=== PATIENT | female | born 1970 | race Caucasian/White ===

== ENCOUNTER 2016-09-14 07:05 | Inpatient (IN) | payer BC, OTHER ==
[~2016-09-14] VITALS: Ht 170.2 cm; Wt 94.3 kg
[2016-09-14] MEDS ORDERED: LOPERAMIDE HCL 2 MG CAPSULE PO PRN ×2 (13:30)
[2016-09-14] MEDS ORDERED: LORAZEPAM 1 MG TABLET PO PRN ×2 (13:30)
[2016-09-14] MEDS ORDERED: MIRALAX 17 GM POWD.PACK PO PRN (13:30)
[2016-09-14] MEDS ORDERED: IBUPROFEN 600 MG TABLET PO PRN (13:30)
[2016-09-14] MEDS ORDERED: MAG HYDROX/AL HYDROX/SIMETH 30 ML LIQUID UDC PO PRN (13:30)
[2016-09-14] MEDS ORDERED: LORAZEPAM 2 MG/1 ML VIAL IM PRN (13:30)
[2016-09-14] MEDS ORDERED: DICYCLOMINE HCL 20 MG TABLET PO PRN (13:30)
[2016-09-14] MEDS ORDERED: ONDANSETRON 4 MG/2 ML VIAL IM PRN (13:30)
[2016-09-14] MEDS ORDERED: MAGNESIUM HYDROXIDE 30 ML LIQUID UDC PO PRN (13:30)
[2016-09-14] MEDS ORDERED: diphenhydrAMINE 50 MG CAPSULE PO PRN (13:30)
--- NOTE | 2016-09-14 13:40 | NUR ---
PRE-ADMISSION NOTE Patient assessed in intake office at 1330 on 09/14/2016. Patient is ambulatory with steady gate, stable, alert oriented x4, speech is soft and clear. Patient states that she is here for safety withdrawal from Xanax and Opioid Dependence. Patient states that her last use "Xanax PO on 09/13/16 at 2100 2mg and Percocet 45mg 09/14/16 at 5"30Am. CIWA 4/COWS-3: Patient presents with anxiety, agitation, nervousness, Patient denies N/V, and diarrhea. Patient denies SI/HI. Patient denies history of seizures. Will complete admission assessment when patient is brought up to unit.
[2016-09-14] MEDS ORDERED: BUPRENORPHINE HCL 2 MG TAB.SUBL SL PRN (13:45)
--- NOTE | 2016-09-14 13:50 | NUR ---
ADMISSION NOTE Pt is a 46 year old female, admitted on 09/14/16 at 1330 for Opioid and Benzo Dependence. Pt admitted under care of Dr. Torres. Pt's skin and body check completed, no contraband found. Pt awake, alert, oriented x 4, gait steady, pt is ambulatory without assistance. Pt weights 280 pounds and her height is 58. Denies any history of seizures. Pt escorted to room 306 where the rest of assessment was completed. Pt is primary source of information, information consistent, speech coherent. Pt brought home medications which have been reconciled. Pt states her PCP Dr. Bingham. Pt denies having a psychiatrist or a psychologist. Pt requested to be full code, regular diet on fall and seizure precautions, Pt denies any food allergies but states he is allergic to Bactrim/Iodine/Ibuprofen, and Margarine Meds. Her last BM was on 09/14/16. Pt states that she with her daughter and grand children. Pt denies smoking cigarettes. Pt denies being admitted to a hospital in the past 30 days, Pt is not a candidate for MRSA. Pt's initial vital signs are BP: 134/96, Temp: 98.2, Pulse: 62 SPO2: 96% RR:18 and states that she has 0/10 pain. Pt's initial CIWA was a 4, COWS-3. Pt reports PMH of Anxiety, Gastric bypass in 2014, A-FIB, Pneumonia in 2013. Pt's longest sobriety lasted 6.5 years which was from 2005 to October 2011. Pt stated that she does not attend AA meetings. Pt reported family history of abuse her daughter and sister are a heroin addicted. Pt denies any suicidal or homicidal ideations. Substance use History : 1.Percocet-used first time at age 17, currently using 10 to 15 tablets of 10mg Po daily last use on 09/14/16 45mg at 5:30 am 2.Xanax- used first time at age 41, Currently using 4mg Po daily last use on 09/13/16 at 2100 Rehab history: Pt denies any rehab history, it her first time in treatment. Pt cooperative, appears depressed, reports moderate anxiety. Educated on relaxation techniques (deep breathing) pt verbalized understanding. Pt denies SI/HI at this time, denies hallucinations. Skin warm and moist from sweat, color pink, consistent throughout the body. Eyes PERRLA, tremors not noted but felt. Pt denied tingling. All extremities with full ROM. Lung sounds clear bilaterally, no cough present, pt denies SOB. Heart rate regular. Cap refill <3 sec. No edema noted. Abdomen soft, round, bowel sounds active x 4, non tender. Pt denies urinary difficulties, urine was provided and sent to lab. Pt oriented to unit, room, equipment, shown how to use call light, provided returned demonstration. MD contacted and aware of patients condition. All admitting orders have been placed. Fall precautions and seizure in place. Side rails up x2, call light within reach, bed locked in low position. Will cont to monitor.
[2016-09-14] MEDS ORDERED: OMEPRAZOLE20 M1 PO (13:58)
[2016-09-14] MEDS ORDERED: PROMETHAZINE HC25 M1 PO (13:58)
[2016-09-14] MEDS ORDERED: DILTIAZEM 24HR360 M1 PO (13:58)
[2016-09-14] MEDS ORDERED: XARELTO20 MG PO (13:58)
[2016-09-14] MEDS ORDERED: CARDIZEM30 M1 PO (13:58)
[2016-09-14] MEDS ORDERED: FUSION CAPSULE1 EACH PO (13:58)
[2016-09-14] MEDS ORDERED: THIAMINE HCL 200 MG/2 ML VIAL IM ONE (14:05)
[2016-09-14] MEDS: ONDANSETRON ODT 4 MG TAB.RAPDIS SL PRN (15:08)
[2016-09-14] MEDS: GABAPENTIN 300 MG CAPSULE PO SCH (15:08)
--- NOTE | 2016-09-14 15:08 | NUR ---
PRN ZOFRAN Patient complains of nausea with no episode of vomiting noted. PRN Zofran SL administered as ordered. Will continue to monitor patient and reassess.
--- NOTE | 2016-09-14 15:38 | NUR ---
REASSESSMENT Pt reported medications effective nausea improved.
--- NOTE | 2016-09-14 19:21 | NUR ---
END OF SHIFT NOTE Gave report to night nurse, 46 year old female admitted today for Opioid and Benzo dependence. Pt reported PMH of Gastric bypass, PNA, Anxiety, A-FIB. Pt is mildly withdrawing and received PRN Zofran noted to be effective. Last CIWA-4, COWS-3. Skin intact warm and dry to touch. Pt denies any history of seizure. Safety measures in place, call light wihtin reach. Pt endorsed to night nurse in stable condition.
--- NOTE | 2016-09-14 19:30 | NUR ---
START OF SHIFT : Pt is a 46 year old female, admitted on 09/14/16 at 1330 for Opioid and Benzo Dependence. Pt awake, alert, oriented x 4, gait steady, pt is ambulatory without assistance. Denies any history of seizures. Pt denies any food allergies but states he is allergic to Bactrim/Iodine/Ibuprofen, and Margarine Meds. Pt denies any suicidal or homicidal ideations. Pt cooperative, appears depressed, reports moderate anxiety. Dr. Torres is called regarding Rivaroxaban (Xarelto)20 Mg Tablet1 Tab PO DAILY and Diltiazem HCl (Cardizem)30 Mg [id number] Mg PO TID. Pt. is on those meds because of A-Fib . New orders placed to PC , ECG ordered. Skin is warm and dry, color pink. Eyes PERRLA, tremors not noted but felt. All extremities with full ROM. Lung sounds clear bilaterally, no cough present, pt denies SOB. Heart rate regular. Cap refill <3 sec. No edema noted. Abdomen soft, round, bowel sounds active x 4, non tender. Pt denies urinary difficulties, urine was provided and sent to lab. Fall precautions and seizure in place. All safety measures in place per hospital policy. Bed in lowest position, side rails up x2, call-light within reach. Will continue to monitor and provide support.
[2016-09-14] MEDS: METHOCARBAMOL 750 MG TABLET PO PRN (19:56)
[2016-09-14] MEDS: CLONIDINE HCL 0.1 MG TABLET PO PRN (19:56)
[2016-09-14] MEDS: ACETAMINOPHEN 325 MG TABLET PO PRN (19:57)
[2016-09-14 20:00] VITALS: BP 148/105; TEMP 98.1
[2016-09-14] MEDS ORDERED: DILTIAZEM HCL 30 MG TABLET PO SCH (21:00)
[2016-09-14] MEDS ORDERED: RIVAROXABAN 10 MG TABLET PO SCH (21:00)
[2016-09-14] MEDS ORDERED: GABAPENTIN 300 MG CAPSULE PO SCH (21:00)
--- NOTE | 2016-09-14 21:00 | NUR ---
PRN TYLENOL, CLONIDINE, ROBAXIN Pt. complains of flashes, body ache 6-7/10, muscle spasm. PRN TYLENOL, CLONIDINE, ROBAXIN given as ordered. All safety measures in place per hospital policy. Bed in lowest position, side rails up x2, call-light within reach. Will continue to monitor and provide support.
[2016-09-14] MEDS ORDERED: LORAZEPAM 1 MG TABLET ONE (21:17)
[2016-09-14] MEDS ORDERED: RIVAROXABAN 10 MG TABLET ONE (21:39)
[2016-09-14] MEDS ORDERED: DILTIAZEM HCL 30 MG TABLET ONE (21:40)
--- NOTE | 2016-09-14 21:55 | NUR ---
REASSESSMENT TYLENOL, CLONIDINE, ROBAXIN Pt. feels better, body ache 1-2/10, pt. is ready to sleep. V/S remain stable. RR=16, even and unlabored, lungs clear upon auscultation, abdomen soft and non- distended. All safety measures in place per hospital policy. Bed in lowest position, side rails up x2, call-light within reach. Will continue to monitor and provide support.
[2016-09-15 04:00] VITALS: BP 114/68; TEMP 98.1
--- NOTE | 2016-09-15 06:41 | NUR ---
END OF SHIFT : Pt is a 46 year old female, admitted on 09/14/16 at 1330 for Opioid and Benzo Dependence. Pt awake, alert, oriented x 4, gait steady, pt is ambulatory without assistance. Denies any history of seizures. Pt denies any food allergies but states he is allergic to Bactrim/Iodine/Ibuprofen, and Margarine Meds. Pt denies any suicidal or homicidal ideations. Pt cooperative, appears depressed, reports moderate anxiety. Skin is warm and dry, color pink. Eyes PERRLA, tremors not noted but felt. All extremities with full ROM. Lung sounds clear bilaterally, no cough present, pt denies SOB. Heart rate regular, HR in the night was 49-62/min. Cap refill <3 sec. No edema noted. Abdomen soft, round, bowel sounds active x 4, non tender. Pt denies urinary difficulties, urine was provided and sent to lab. Fall precautions and seizure in place. Day shift nurse will discuss with MD dose of Cardizem (Bradycardia), PT/PTT/INR order because of DAILY order Rivaroxaban (Xarelto)20 Mg Tab PO. Pt remains compliant with the treatment plan. PRN TYLENOL, CLONIDINE, ROBAXIN were given during my shift. V/S remain stable. RR=16, even and unlabored, lungs clear upon auscultation, abdomen soft and non- distended. Pt denies nausea, vomiting and diarrhea. LAST CIWA=6 ,COWS=3 at 0400 , INTAKE= 500 ml, voided x 1, slept 7 hours. All safety measures in place per hospital policy. Bed in lowest position, side rails up x2, call-light within reach. Will continue to monitor and provide support.
[2016-09-15] MEDS: DILTIAZEM HCL 30 MG TABLET PO SCH ×3 (07:22→21:23)
--- NOTE | 2016-09-15 07:30 | NUR ---
CARDIZEM HELD Pt noted with low HR-55, B/P 113/62 Cardizem held . Pt is alert oriented in stable condition no S/S of distress noted. MD aware. Will cont to monitor.
--- NOTE | 2016-09-15 07:50 | NUR ---
START OF SHIFT NOTE Received report from night nurse, 46 year old female admitted today for Opioid and Benzo dependence. Pt reported PMH of Gastric bypass, PNA, Anxiety, A-FIB. Pt received PRN medications during shift effective per night nurse. Last CIWA-6, COWS-3, Slept for 7 hours. Received pt resting in her room in stable condition, breathing normal no SOB noted. Skin intact warm and dry tot touch. Educate the pt current plan of the day and medication regimen with good verbal understanding. Safety measures in place, Call light within reach. Will cont to monitor.
[2016-09-15 08:00] VITALS: BP 113/62; TEMP 98
[2016-09-15] MEDS: MULTIVITAMINS,THERAPEUTIC TABLET PO SCH (08:23)
[2016-09-15] MEDS: THIAMINE HCL 100 MG TABLET PO SCH (08:23)
[2016-09-15] MEDS: LORAZEPAM 1 MG TABLET PO SCH ×3 (08:23→21:24)
[2016-09-15] MEDS: GABAPENTIN 300 MG CAPSULE PO SCH ×3 (08:23→21:24)
[2016-09-15] MEDS: FOLIC ACID 1 MG TABLET PO SCH (08:23)
[2016-09-15] MEDS: DOCUSATE SODIUM 250 MG CAPSULE PO SCH (08:25)
[2016-09-15] MEDS: BUPRENORPHINE HCL 2 MG TAB.SUBL SL SCH ×4 (08:34→21:22)
[2016-09-15] MEDS ORDERED: 5 DAY TAPER OF LORAZEPAM -SERENITY PROTOCOL PO PRN (09:00)
[2016-09-15] MEDS ORDERED: 5 DAY TAPER BUPRENORPHINE -SERENITY PROTOCOL SL PRN (09:00)
[2016-09-15] MEDS ORDERED: TUBERCULIN,PURIF.PROT.DERIV. 5 TU/0.1 ML TEST ID ONE (09:00)
[2016-09-15 12:00] VITALS: BP 98/55; TEMP 98.7
[2016-09-15] MEDS: METHOCARBAMOL 750 MG TABLET PO PRN (12:49)
[2016-09-15] MEDS: ACETAMINOPHEN 325 MG TABLET PO PRN (12:49)
--- NOTE | 2016-09-15 12:49 | NUR ---
PRN TYLENOL, CLONIDINE, ROBAXIN Pt. complains body ache 5/10 and muscle spasm. PRN Tylenol/Robaxin given as ordered. Safety measures in place, call light within reach. Will cont to monitor and reassess the pt. Addendum: 09/15/16 at 1907 by HILDA MILNER LVN ERROR- Pt did not receive any Clonidine at this time.
--- NOTE | 2016-09-15 13:49 | NUR ---
REASSESSMENT Upon reassessment pt reported medications effective pain decreased to 1/10, muscle cramps subside.
--- NOTE | 2016-09-15 15:15 | NUR ---
Client encouraged to attend the afternoon group.
[2016-09-15 16:00] VITALS: BP 118/67; TEMP 97.4
[2016-09-15] MEDS: CLONIDINE HCL 0.1 MG TABLET PO PRN (18:11)
--- NOTE | 2016-09-15 18:11 | NUR ---
PRN CLONIDINE Pt c/o of anxiety, agitation. PRN Clonidine given as ordered. Will cont to monitor and reassess the pt.
[2016-09-15] MEDS: RIVAROXABAN 10 MG TABLET PO SCH (18:13)
--- NOTE | 2016-09-15 19:10 | NUR ---
REASSESSMENT Pt reported medication effective anxiety and agitation decreased. Will cont to monitor.
--- NOTE | 2016-09-15 19:11 | NUR ---
END OF SHIFT NOTE Gave report to night nurse, 46 year old female admitted today for Opioid and Benzo dependence. Pt reported PMH of Gastric bypass, PNA, Anxiety, A-FIB. Pt started on Subutex and Ativan taper tolerating well. Skin intact warm and dry to touch. Pt denies any history of seizure. Pt remained compliant with plan of care. Pt attended groups and activities. Vital signs remained stable. Pt received PRN'S medications during shift noted to be effective. Last CIWA-5, COWS-5. Safety measures in place, call light within reach. Pt endorsed to night nurse in stable condition.
--- NOTE | 2016-09-15 19:15 | NUR ---
Pt is a 46 year old female, admitted on 09/14/16 at 1330 for Opioid and Benzo Dependence. Pt awake, alert, oriented x 4, gait steady, pt is ambulatory without assistance. Denies any history of seizures. Pt denies any food allergies but states he is allergic to Bactrim/Iodine/Ibuprofen, and Margarine Meds. Pt denies any suicidal or homicidal ideations. Pt cooperative, appears depressed, reports moderate anxiety. Skin is warm and dry, color pink. Eyes PERRLA, tremors not noted but felt. All extremities with full ROM. Lung sounds clear bilaterally, no cough present, pt denies SOB. Heart rate regular. Cap refill <3 sec. No edema noted. Abdomen soft, round, bowel sounds active x 4, non tender. Fall precautions and seizure in place. All safety measures in place per hospital policy. Bed in lowest position, side rails up x2, call-light within reach. Will continue to monitor and provide support.
[2016-09-15 20:00] VITALS: BP 123/70; TEMP 98.1
[2016-09-15] MEDS: TRAZODONE 100 MG TABLET PO SCH (21:23)
[2016-09-16 04:00] VITALS: BP 96/55; TEMP 98.2
[2016-09-16] MEDS: DILTIAZEM HCL 30 MG TABLET PO SCH ×3 (06:00→21:02)
--- NOTE | 2016-09-16 06:52 | NUR ---
END OF SHIFT NOTE : Pt is a 46 year old female, admitted on 09/14/16 at 1330 for Opioid and Benzo Dependence. Pt awake, alert, oriented x 4, gait steady, pt is ambulatory without assistance. Denies any history of seizures. Pt denies any food allergies but states he is allergic to Bactrim/Iodine/Ibuprofen, and Margarine Meds. Pt denies any suicidal or homicidal ideations. Pt cooperative, appears depressed, reports moderate anxiety. Skin is warm and dry, color pink. Eyes PERRLA, tremors not noted but felt. All extremities with full ROM. Lung sounds clear bilaterally, no cough present, pt denies SOB. Heart rate regular. Cap refill <3 sec. No edema noted. Abdomen soft, round, bowel sounds active x 4, non tender. Fall precautions and seizure in place Pt remains compliant with the treatment plan. No PRNs were given during my shift. HR=49-50/min at 06:00, Cardizem 30mg PO NOT GIVEN, the dose and frequency will be discussed with MD at 08:00. RR=16, even and unlabored, lungs clear upon auscultation, abdomen soft and non- distended. Pt denies nausea, vomiting and diarrhea. LAST CIWA= 4 ,COWS= 4 at 0400 , INTAKE= 2000 ml, voided x 4, slept 7 hours. Safety measures in place : bed on lowest position with side rails x2 up for safety, call light within reach. Will continue to monitor closely and offer help.
[2016-09-16 08:00] VITALS: BP 113/68; TEMP 98
--- NOTE | 2016-09-16 08:00 | NUR ---
START OF SHIFT Pt 46 y/o female admitted for opioid and benzo dependence. Pt received in room on bed watching television. Pt alert and oriented to name, place, and time. Perrla. Skin warm and moist to touch. Respirations even and unlabored. Bilateral hand tremors noted slightly. Pt appears anxious, with pressured speech noted. Pt also observed fidgety. It was reported that pt slept for 7 hours last night. Bed on lowest position with side rails x2up for safety. Call light within reach. No distress noted at this time.
[2016-09-16] MEDS: FOLIC ACID 1 MG TABLET PO SCH (08:42)
[2016-09-16] MEDS: GABAPENTIN 300 MG CAPSULE PO SCH ×3 (08:42→20:10)
[2016-09-16] MEDS: METHOCARBAMOL 750 MG TABLET PO PRN ×2 (08:42→17:03)
[2016-09-16] MEDS: DOCUSATE SODIUM 250 MG CAPSULE PO SCH (08:42)
[2016-09-16] MEDS: MULTIVITAMINS,THERAPEUTIC TABLET PO SCH (08:43)
[2016-09-16] MEDS: LORAZEPAM 1 MG TABLET PO SCH ×4 (08:43→20:10)
[2016-09-16] MEDS: BUPRENORPHINE HCL 2 MG TAB.SUBL SL SCH ×3 (08:43→20:10)
[2016-09-16] MEDS: THIAMINE HCL 100 MG TABLET PO SCH (08:43)
--- NOTE | 2016-09-16 08:50 | NUR ---
PRN Pt with c/o generalized body aches 01/04. robaxin po prn per MD order given and tolerated well.
--- NOTE | 2016-09-16 08:52 | NUR ---
Clinician encouraged client to attend groups today. Client said she would do so.
--- NOTE | 2016-09-16 09:50 | NUR ---
PRN ARIES Pt states pain 08/04.
[2016-09-16 12:00] VITALS: BP 113/66; TEMP 98
[2016-09-16 16:00] VITALS: BP 127/68; TEMP 98.2
[2016-09-16] MEDS: RIVAROXABAN 10 MG TABLET PO SCH (17:05)
--- NOTE | 2016-09-16 17:10 | NUR ---
PRN Pt states general body aches 11/03. Robaxin po prn per MD order given and tolerated well.
--- NOTE | 2016-09-16 18:45 | NUR ---
END OF SHIFT Pt 46 y/o female admitted for opioid and benzo dependence. Pt alert and oriented to name, place, and time. Perrla. Skin warm and moist to touch. Respirations even and unlabored. Bilateral hand tremors noted slightly. Pt appears anxious, with pressured speech noted. Pt observed mostly in room throughout the day. Pt selective with group activity. Pt medication compliant and tolerated well. No ASe noted. Pt was seen by Dr. Torres today. Bed on lowest position with side rails x2up for safety. Call light within reach. No distress noted at this time.
[2016-09-16 20:00] VITALS: BP 121/80; TEMP 98.1
--- NOTE | 2016-09-16 20:00 | NUR ---
Start of Shift Pt is a 46 year old female admitted for Percocet and Xanax dependence, placed on 5 day Ativan and 5 day Subutex taper. Pt reports using Percocet 10mg/daily and Xanax 4mg/daily. PMH: Gastric by pass, pneumonia and Afib. Pt is allergic to ibuprofen, iodine, migraine meds, seafood, sulfamethoxazole and trimethoprim, regular diet and full code. Upon assessment, pt presented with anxiety, body/muscle aches, chills, unable to sit still, tremors visible and skin noted with moderate sweat/face flushed, respirations unlabored, denies SOB/chest pain, denies SI/HI, bowel sounds active 4, abdomen soft. Safety measures in place, call light within reach, side rails up x2, bed locked and in low position. Will continue to monitor.
[2016-09-16] MEDS: TRAZODONE 100 MG TABLET PO SCH (21:02)
[2016-09-16] MEDS: CLONIDINE HCL 0.1 MG TABLET PO PRN (22:44)
--- NOTE | 2016-09-16 22:44 | NUR ---
PRN Administration Pt reports feeling anxious, reported chills, unable to sit still, with reports of aches in lower back and legs. Clonidine 0.1mg PRN administered. Safety measures in place. Will continue to monitor.
--- NOTE | 2016-09-16 23:44 | NUR ---
PRN Reassessment Upon reassessment, pt is noted to be resting, eyes closed, respirations even/unlabored, no s/s of distress. Safety measures in place. will continue to monitor.
[2016-09-17] VITALS: BP 105/59; TEMP 98
--- NOTE | 2016-09-17 | NUR ---
Vital Signs BP 105/59, pulse 59, respirations 16, Spo2 97%, temp 98, no pain 0/10 CIWA/COWS deferred d/t pt sleeping - to asses while pt is awake as ordered. Safety measures in place. Will continue to monitor.
[2016-09-17 04:00] VITALS: BP 124/68; TEMP 98.1
--- NOTE | 2016-09-17 04:00 | NUR ---
Vital Signs BP 124/68, pulse 53, respirations 16, Spo2 99%, temp 98.1, no pain 0/10 CIWA/COWS deferred d/t pt sleeping - to asses while pt is awake as ordered. Safety measures in place. Will continue to monitor.
[2016-09-17] MEDS: DILTIAZEM HCL 30 MG TABLET PO SCH ×2 (06:35→21:16)
--- NOTE | 2016-09-17 07:00 | NUR ---
End of Shift Pt is a 46 year old female admitted for Percocet and Xanax dependence, placed on 5 day Ativan and 5 day Subutex taper. Pt reports using Percocet 10mg/daily and Xanax 4mg/daily. PMH: Gastric by pass, pneumonia and Afib. Pt is allergic to ibuprofen, iodine, migraine meds, seafood, sulfamethoxazole and trimethoprim, regular diet and full code. During, pt presented with anxiety, body/muscle aches, chills, unable to sit still, tremors visible and skin noted with moderate sweat/face flushed - scheduled taper mediations administered, CIWA 5 and COWS 7. Clonidine 0.1mg PRN administered for anxiety, effective. Pt slept for 6 hours, intake of 2750 ml Po and voids x6. Safety measures in place, call light within reach, side rails up x2, bed locked and in low position. Endorsed to day shift nurse.
--- NOTE | 2016-09-17 07:06 | NUR ---
Start Of Shift Report received from shift supervisor rn. Pt is a 46 year old female admitted for Percocet and Xanax dependence. Pt is full code regular diet on fall and seizure precautions reports allergies to ibuprofen, iodine, migraine Meds, seafood, sulfamethoxazole and trimethoprim. Pt continues her 5 day Ativan and 5 day Subutex taper. PMH: Gastric bypass, pneumonia and Afib. During, pt presented with anxiety, agitation, muscle aches, sweats, unable to sit still, Pts last CIWA 5 and COWS 7 taken at 0400. Pt received PRN Clonidine 0.1mg for anxiety, medication effective per shift supervisor rn nurse. Pt slept for a total of 6 hours. Safety measures in place, call light within reach, side rails up x2, bed locked and in low position. Will continue to monitor and provide care.
[2016-09-17 08:00] VITALS: BP 126/65; TEMP 98.2
[2016-09-17] MEDS ORDERED: BUPRENORPHINE HCL 2 MG TAB.SUBL SL SCH (09:00)
[2016-09-17] MEDS: FOLIC ACID 1 MG TABLET PO SCH (09:13)
[2016-09-17] MEDS: MULTIVITAMINS,THERAPEUTIC TABLET PO SCH (09:13)
[2016-09-17] MEDS: LORAZEPAM 1 MG TABLET PO SCH ×3 (09:13→21:14)
[2016-09-17] MEDS: ACETAMINOPHEN 325 MG TABLET PO PRN ×2 (09:13→21:13)
--- NOTE | 2016-09-17 09:13 | NUR ---
PRN MEDICATION Pt c/o generalized pain rating it 6/10 requested something for relief, non-pharmacological techniques interventions provided x3 and were not effective. PRN Tylenol 650mg administered PO, educated pt about s/e of medication and when to contact nurse. all needs met, all safety measures in place, will continue to monitor.
[2016-09-17] MEDS: THIAMINE HCL 100 MG TABLET PO SCH (09:14)
[2016-09-17] MEDS: DOCUSATE SODIUM 250 MG CAPSULE PO SCH (09:14)
[2016-09-17] MEDS: GABAPENTIN 300 MG CAPSULE PO SCH ×3 (09:14→21:13)
--- NOTE | 2016-09-17 10:13 | NUR ---
PRN REASSESSMENT Upon reassessment medication noted to be effective pt reported a decrease in pain to 1/10. Instructed pt to contact nurse if pain reoccurred. All needs met, all safety measures in place will continue to monitor.
[2016-09-17 12:00] VITALS: BP 121/61; TEMP 98.2
[2016-09-17] MEDS ORDERED: BUPRENORPHINE HCL 2 MG TAB.SUBL SL ONE (12:00)
--- NOTE | 2016-09-17 12:29 | NUR ---
PRN MEDICATION Pt c/o Anxiety presented with agitation and restlessness sweats and tremors, CIWA score of 8 requested something for relief, non-pharmacological techniques interventions provided x3 and were not effective. PRN Ativan 1mg administered PO, educated pt about s/e of medication and when to contact nurse. all needs met, all safety measures in place, will continue to monitor. Addendum: 09/17/16 at 1618 by JOHN JONES RN WRONG PATIENT
--- NOTE | 2016-09-17 13:29 | NUR ---
PRN REASSESSMENT Upon reassessment medication noted to be effective pt reported a decrease in Anxiety CIWA score has dropped to 5. Instructed pt to contact nurse if symptoms reoccurred. All needs met, all safety measures in place will continue to monitor. Addendum: 09/17/16 at 1618 by JOHN JONES RN WRONG PATIENT
[2016-09-17] MEDS: BACLOFEN 10 MG TABLET PO SCH ×2 (14:58→21:14)
[2016-09-17] MEDS: DICYCLOMINE HCL 20 MG TABLET PO SCH ×2 (14:58→21:14)
[2016-09-17] MEDS: BUPRENORPHINE HCL 2 MG TAB.SUBL SL SCH ×2 (14:59→21:14)
[2016-09-17 16:00] VITALS: BP 120/66; TEMP 98.2
[2016-09-17] MEDS: RIVAROXABAN 10 MG TABLET PO SCH (17:29)
--- NOTE | 2016-09-17 19:30 | NUR ---
Start of Shift Note: Patient is a 46 y/o female admitted on 09/14/16 for Opiate & Benzo dependence. Patient has medical history of Gastric Bypass, Pneumonia(2013) & A-fib. Patient is on a regular diet with allergies to Bactrim, Idonine, Seafood, Ibuprofen & Migraine medications. Patient is on a 5-day Ativan & 5-day Subutex taper and tolerating well. . Patient is alert & oriented x4. Patient is amulatory with a steady gait. No shortness of breath noted. Respiration even & unlabored. Abdomen soft & non-distended. Slight nausea with no episode of vomiting. Patient complains of sweating, chills, restless legs, 8/10 body aches and 8/10 headache. Bilateral hand tremors felt but not seen. No hallucinations noted. Patient denies SI/HI. Safety precautions are in place. Bed locked in lowest position. Both side rails up. Call light within pt's reach. Will continue to monitor patient.
--- NOTE | 2016-09-17 19:43 | NUR ---
End of Shift Pt is a 46 year old female admitted for Percocet and Xanax dependence, placed on 5 day Ativan and 5 day Subutex taper. Pt reports using Percocet PMH: Gastric by pass, pneumonia and Afib. Pt is allergic to ibuprofen, iodine, migraine meds, seafood, sulfamethoxazole and trimethoprim, regular diet and full code. During, pt presented with anxiety, body/muscle aches, Fluids encouraged to facilitate detox scheduled taper mediations administered, CIWA 8 and COWS 8. Pt received PRN Tylenol and a one time Subutex 4 mg per MD order. Detox medication effective at reducing withdrawal symptoms. Patient encouraged to attend group therapies/sessions to learn new coping skills to recent relapse, patient denies SI/HI. Pt had an intake of 4000 ml and voids x8 n BM. Safety measures in place, call light within reach, side rails up x2, bed locked and in low position. Endorsed to day shift nurse.
[2016-09-17 20:00] VITALS: BP 129/65; TEMP 98.4
[2016-09-17] MEDS ORDERED: CLONIDINE HCL 0.1 MG TABLET PO SCH (21:00)
[2016-09-17] MEDS ORDERED: PATIENT MAY USE OWN MED- MD OK PO SCH (21:00)
[2016-09-17] MEDS: DOCUSATE SODIUM 100 MG CAPSULE PO SCH (21:13)
--- NOTE | 2016-09-17 21:13 | NUR ---
PRN Tylenol Patient complains of 8/10 headache. Patient is restless with facial grimacing noted. PRN Tylenol administered as ordered. WIll continue to monitor patient.
[2016-09-17] MEDS: TRAZODONE 100 MG TABLET PO SCH (21:14)
--- NOTE | 2016-09-17 22:13 | NUR ---
PRN Reassessment Patient verbalized relief from headache. 2/10 pain noted at this time. Patient lying in bed and appears comfortable. WIll continue to monitor patient.
[2016-09-18] VITALS: BP 95/57; TEMP 97.9
[2016-09-18] MEDS: METHOCARBAMOL 750 MG TABLET PO PRN (03:39)
--- NOTE | 2016-09-18 03:39 | NUR ---
PRN RObaxin Patient complains of 8/10 back pain. Patient is restless with facial grimacing noted. PRN Robaxin administered as ordered. Will reassess in 1 hour. Will continue to monitor.
[2016-09-18] MEDS: DILTIAZEM HCL 30 MG TABLET PO SCH ×3 (05:00→21:00)
[2016-09-18 05:45] VITALS: BP 105/59; TEMP 98.2
--- NOTE | 2016-09-18 07:14 | NUR ---
End of Shift Note: Patient is a 46 y/o female admitted on 09/14/16 for Opiate & Benzo dependence. Patient has medical history of Gastric Bypass, Pneumonia(2014) & A-fib. Patient is on a regular diet with allergies to Bactrim, Iodine, Seafood, Ibuprofen & Migraine medications. Patient is on a 5-day Ativan & 5-day Subutex taper and tolerating well. Patient was given PRN Tylenol for headache & Robaxin for body aches during my shift. Last COWS 4 CIWA 5 noted. Patient remained stable and vitals remains WNL. Pt compliant with treatment plan. Pt lying in bed with no s/s of distress. No shortness of breath noted. Respiration even & unlabored. Pt slept for 6 hours. Pt consumed 1750ml of fluids. Voided 5x with no bowel movement noted. All needs attended & met. Safety precautions are in place. Will endorse pt to day shift nurse.
--- NOTE | 2016-09-18 07:16 | NUR ---
Start Of Shift Report received from power and recovery shift engineer. Pt is a 46 year old female admitted for Percocet and Xanax dependence. Pt is full code regular diet on fall and seizure precautions reports allergies to ibuprofen, iodine, migraine Meds, seafood, sulfamethoxazole and trimethoprim. Pt continues her 5 day Ativan and 5 day Subutex taper. During assessment, pt presented with anxiety, unable to sit still, Pt's last CIWA 5 and COWS 4 taken at 0400. Pt received PRN Tylenol and Robaxin, medication effective per power and recovery shift engineer nurse. Pt slept for a total of 6 hours. Safety measures in place, call light within reach, side rails up x2, bed locked and in low position. Will continue to monitor and provide care.
[2016-09-18 08:00] VITALS: BP 109/66; TEMP 98.1
[2016-09-18] MEDS: GABAPENTIN 300 MG CAPSULE PO SCH ×3 (09:23→20:09)
[2016-09-18] MEDS: DICYCLOMINE HCL 20 MG TABLET PO SCH ×3 (09:23→20:11)
[2016-09-18] MEDS: BACLOFEN 10 MG TABLET PO SCH ×3 (09:23→20:10)
[2016-09-18] MEDS: FOLIC ACID 1 MG TABLET PO SCH (09:23)
[2016-09-18] MEDS: MULTIVITAMINS,THERAPEUTIC TABLET PO SCH (09:23)
[2016-09-18] MEDS: THIAMINE HCL 100 MG TABLET PO SCH (09:23)
[2016-09-18] MEDS: LORAZEPAM 1 MG TABLET PO SCH ×2 (09:23→20:10)
[2016-09-18] MEDS: BUPRENORPHINE HCL 2 MG TAB.SUBL SL SCH ×3 (09:24→20:11)
[2016-09-18] MEDS: ONDANSETRON ODT 4 MG TAB.RAPDIS SL PRN (09:24)
--- NOTE | 2016-09-18 09:24 | NUR ---
PRN MEDICATION Pt c/o nausea requested something for relief, PRN Zofran 4mg administered, educated pt about s/e of medication and when to contact nurse. all needs met, all safety measures in place, will continue to monitor.
--- NOTE | 2016-09-18 10:24 | NUR ---
PRN REASSESSMENT Upon reassessment medication noted to be effective pt stated that she was no longer nauseate . Instructed pt to contact nurse if pain reoccurred. All needs met, all safety measures in place will continue to monitor.
[2016-09-18 12:00] VITALS: BP 102/57; TEMP 98.3
[2016-09-18 16:00] VITALS: BP 100/69; TEMP 98.7
[2016-09-18] MEDS: RIVAROXABAN 10 MG TABLET PO SCH (18:15)
--- NOTE | 2016-09-18 19:15 | NUR ---
Start of Shift Note: Patient is a 46 y/o female admitted on 09/14/16 for Opiate & Benzo dependence. Patient has medical history of Gastric Bypass, Pneumonia(2014) & A-fib. Patient is on a regular diet with allergies to Bactrim, Idonine, Seafood, Ibuprofen & Migraine medications. Patient is on a 5-day Ativan & 5-day Subutex taper and tolerating well. Last COWS 6 CIWA 5. Pt was given PRN Zofran during day shift. Pt with new order Seroquel 50mg for sleep. Patient is alert & oriented x4. Patient is ambulatory with a steady gait. No shortness of breath noted. Respiration even & unlabored. Abdomen soft & non-distended. Slight nausea with no episode of vomiting. Patient complains of sweating, chills, stomach cramps, restless legs, 7/10 body aches and 7/10 headache. Bilateral hand tremors felt but not seen. No hallucinations noted. Patient denies SI/HI. Safety precautions are in place. Bed locked in lowest position. Both side rails up. Call light within pt's reach. Will continue to monitor patient.
--- NOTE | 2016-09-18 19:19 | NUR ---
End Of Shift Report given to ditching machine operating engineer nurse. Pt is a 46 year old female admitted for Percocet and Xanax dependence, continues her 5 day Ativan and 5 day Subutex taper. PMH: Gastric bypass, pneumonia and A.fib. Pt is full code regular diet on fall and seizure precautions reports allergies to ibuprofen, iodine, migraine meds, seafood, sulfamethoxazole and trimethoprim. Fluids encouraged to facilitate detox, scheduled taper mediations administered, her last CIWA 5 and COWS 6 at 1600. Pt received PRN Zofran 4mg for nausea, medication effective. Detox medication effective at reducing withdrawal symptoms. Patient encouraged to attend group therapies/sessions to learn new coping skills to recent relapse, patient denies SI/HI. Pt had an intake of 2000 ml and voids x3 no BM. Safety measures in place, call light within reach, side rails up x2, bed locked and in low position. Endorsed to day shift nurse.
[2016-09-18 20:00] VITALS: BP 113/62; TEMP 98.4
[2016-09-18] MEDS: ACETAMINOPHEN 325 MG TABLET PO PRN (20:10)
--- NOTE | 2016-09-18 20:10 | NUR ---
PRN Administration Patient complains of 7/10 headache and constipation. PRN Tylenol and Milk of Magnesia administered as ordered. Will reassess in 1 hour. Will continue to monitor patient.
[2016-09-18] MEDS: DOCUSATE SODIUM 100 MG CAPSULE PO SCH (20:11)
[2016-09-18] MEDS ORDERED: QUETIAPINE FUMARATE 25 MG TABLET PO SCH (21:00)
--- NOTE | 2016-09-18 21:10 | NUR ---
PRN Reassessment Patient verbalized relief from headache. 2/10 pain noted at this time. Pt still with no bowel movement at this time. Will keep monitoring patient.
[2016-09-19] VITALS: BP 124/62; TEMP 97.9
[2016-09-19] MEDS: DILTIAZEM HCL 30 MG TABLET PO SCH ×2 (05:00→12:35)
[2016-09-19] MEDS: ACETAMINOPHEN 325 MG TABLET PO PRN (05:01)
[2016-09-19] MEDS: METHOCARBAMOL 750 MG TABLET PO PRN (05:01)
--- NOTE | 2016-09-19 05:01 | NUR ---
PRN Administration Patient complains of 9/10 body aches and headache. Patient is restless with facial grimacing noted. PRN Tylenol & Robaxin given as ordered. Will continue to monitor.
[2016-09-19 05:02] VITALS: BP 99/63; TEMP 97.5
--- NOTE | 2016-09-19 06:01 | NUR ---
PRn Reassessment Patient asleep at this time and appears comfortable. No s/s of distress noted. No facial grimacing noted. Safety precautions are in place. Will continue to monitor.
--- NOTE | 2016-09-19 07:21 | NUR ---
End of Shift Note: Patient is a 46 y/o female admitted on 09/14/16 for Opiate & Benzo dependence. Patient has medical history of Gastric Bypass, Pneumonia(2013) & A-fib. Patient is on a regular diet with allergies to Bactrim, Iodine, Seafood, Ibuprofen & Migraine medications. Patient is on a 5-day Ativan & 5-day Subutex taper and tolerating well. Patient was given PRN Tyleno 2x, Robaxin & MOM. Last COWS 5 CIWA 6 noted. Patient remained stable and vitals remains WNL. Pt compliant with treatment plan. Pt lying in bed with no s/s of distress. No shortness of breath noted. Respiration even & unlabored. Pt slept for 8 hours. Pt consumed 796ml of fluids. Voided 2x with no bowel movement noted. All needs attended & met. Safety precautions are in place. Will endorse pt to day shift nurse.
[2016-09-19 08:00] VITALS: BP 126/71; TEMP 98.3
--- NOTE | 2016-09-19 08:00 | NUR ---
START OF SHIFT Patient is a 46 year old female admitted for Benzo/Opiate dependence. Patient is laying in bed comfortably but states"body aches and sweats". Patient slept 8 hours last night. Respirations are even and unlabored, vital signs WNL. Patient is slightly anxious and worried about tapers: Ativan and Subutex. Call light within reach, bed in lowest position, and 2X side rails up .
[2016-09-19] MEDS: BACLOFEN 10 MG TABLET PO SCH (08:36)
[2016-09-19] MEDS: THIAMINE HCL 100 MG TABLET PO SCH (08:36)
[2016-09-19] MEDS: GABAPENTIN 300 MG CAPSULE PO SCH (08:36)
[2016-09-19] MEDS: FOLIC ACID 1 MG TABLET PO SCH (08:36)
[2016-09-19] MEDS: DICYCLOMINE HCL 20 MG TABLET PO SCH (08:36)
[2016-09-19] MEDS: MULTIVITAMINS,THERAPEUTIC TABLET PO SCH (08:36)
[2016-09-19] MEDS ORDERED: BUPRENORPHINE HCL 2 MG TAB.SUBL SL SCH (09:00)
[2016-09-19] MEDS ORDERED: METHYL SALICYLATE/MENTHOL CREAM 28 GM TUBE TOP PRN (11:15)
[2016-09-19] MEDS ORDERED: ACETAMINOPHEN ES 500 MG TABLET PO PRN (11:15)
[2016-09-19 12:00] VITALS: BP 119/72; TEMP 98.6
[2016-09-19 12:35] VITALS: BP 119/70
--- NOTE | 2016-09-19 12:35 | NUR ---
NSG ENTRY Pt with c/o numb feeling of the face and lips. Perrla, pt able to shrug both shoulders evenly, pt able to stick out tongue and smile with no drooping noted, and with equal hand forensic ballistics expert strength bilaterally. EV=903/70 P=53 o2=97%@RA. Pt also observed ambulating with steady gait around in room. Dr. Adams made aware with new order to hold Cardizem due at 1300, noted and carried out, and that he will come to see pt.
[2016-09-19] MEDS ORDERED: LIDOCAINE 5% PATCH TD SCH (13:00)
[2016-09-19] MEDS ORDERED: Baclofen PO (13:51)
[2016-09-19] MEDS ORDERED: BENTYL20 M1 PO (13:51)
[2016-09-19] MEDS ORDERED: A/F PAIN RELIE500 M1 PO (13:51)
[2016-09-19] MEDS ORDERED: Gabapentin PO (13:51)
[2016-09-19] MEDS ORDERED: BENADRYL50 MG PO (13:51)
[2016-09-19] MEDS ORDERED: LIDODERM 5% P1 PATCH TD (13:51)
[2016-09-19] MEDS ORDERED: SEROQUEL25 MG PO (13:51)
--- NOTE | 2016-09-19 14:09 | NUR ---
NSG ENTRY Dr. Adams on unit evaluating pt. Dr. Adams with new order for code stroke/evaluated ER dimension warehouse supervisor.
--- NOTE | 2016-09-19 14:15 | NUR ---
NSG ENTRY soaking pits supervisor on unit evaluating pt. Code Stroke activated.
--- NOTE | 2016-09-19 14:30 | NUR ---
TRANSFER Pt transferred off unit to ER, but to have CT head done first.
--- NOTE | 2016-09-19 14:30 | NUR ---
code stroke/ER was initiated at the time of assessment pt was having EKG done resulted with normal sinus rhythm. pt verbalized no pain but numbness on lips and face. no facial droop noted. upon assessing pt powerhouse mechanic noted weakness on left hand charge master coordinator and left foot flexor assessment. 02 nasal cannula was applied at 2 L/min
--- NOTE | 2016-09-19 14:32 | NUR ---
telestroke was called and all information was given via telephone, at the same time pt was being transferred to CT scan/ER via rney
[2016-09-19] MEDS ORDERED: BACLOFEN 10 MG TABLET PO SCH (15:00)
[2016-09-19] MEDS ORDERED: GABAPENTIN 300 MG CAPSULE PO SCH (15:00)
[2016-09-19] MEDS ORDERED: BACLOFEN 20 MG TABLET PO SCH (15:00)
[2016-09-19] MEDS ORDERED: TRAZODONE 50 MG TABLET PO SCH (21:00)
== END 2016-09-19 16:30 | disposition short-term general hospital (02) | DRG 895 ==
LOC: SRC 12:58
PROVIDERS: ADMIT Internal Medicine; ATTEND Internal Medicine
PROC: HZ2ZZZZ Detoxification Services for Substance Abuse Treatment (ICD-10-PCS; principal; 2016-09-14)
PROC: HZ41ZZZ Group Counseling for Substance Abuse Treatment, Behavioral (ICD-10-PCS; principal; 2016-09-14)
PROC: HZ31ZZZ Individual Counseling for Substance Abuse Treatment, Behavioral (ICD-10-PCS; 2016-09-15)
DX: F11.23 Opioid dependence with withdrawal (principal); I69.854 Hemiplegia and hemiparesis following other cerebrovascular disease affecting left non-dominant side; D68.59 Other primary thrombophilia; F41.1 Generalized anxiety disorder; M79.7 Fibromyalgia; I48.0 Paroxysmal atrial fibrillation; Z79.01 Long term (current) use of anticoagulants; K21.9 Gastro-esophageal reflux disease without esophagitis; Z79.899 Other long term (current) drug therapy; E07.81 Sick-euthyroid syndrome; R20.0 Anesthesia of skin; G89.29 Other chronic pain; F13.230 Sedative, hypnotic or anxiolytic dependence with withdrawal, uncomplicated; K59.03 Drug induced constipation; G47.00 Insomnia, unspecified

== ENCOUNTER 2016-09-19 14:37 | Inpatient (IN) | payer BC, OTHER ==
[~2016-09-19] VITALS: Ht 170.2 cm; Wt 94.3 kg
[~2016-09-19 14:37] MED LIST: ACET-2605 PO; Baclofen PO; DICY20TA28 PO; DILT30TA35 PO; DILT360C29 PO; DIPH50CA37 PO; Gabapentin PO; IRON1CAP PO; LIDO30AD10 TD; OMEP20TA5 PO; PROM25TA15 PO; QUET25TA PO; RIVA20TA PO
--- NOTE | 2016-09-19 14:40 | NUR ---
Pt brought from CT via bed by nursing casino supervisor and [facility] staff post code stroke on [facility] floor. Pt placed in room 1a, Dr Rivas at bedside for exam.
--- NOTE | 2016-09-19 14:50 | NUR ---
Dr Rivas spoke with Dr Lam (neuro) via telephone.
--- NOTE | 2016-09-19 15:15 | NUR ---
Pt resting in bed, appears comfortable, NAD noted at this time.
--- NOTE | 2016-09-19 15:32 | NUR ---
Pt states she is now having a headache and chest pain, Dr Rivas notified.
[2016-09-19] MEDS ORDERED: ALPRAZOLAM 0.25 MG TABLET PO ONE (15:45)
[2016-09-19] MEDS ORDERED: ACETAMINOPHEN 325 MG TABLET PO ONE (15:45)
[2016-09-19] MEDS ORDERED: ACETAMINOPHEN 325 MG TABLET ONE (16:02)
[2016-09-19] MEDS ORDERED: ALPRAZOLAM 0.5 MG TABLET ONE (16:03)
--- NOTE | 2016-09-19 16:07 | NUR ---
Per Dr Rivas may be admitted to tele. SBAR report given to Isela JACOBO via telephone.
--- NOTE | 2016-09-19 16:22 | NUR ---
Pt trans to tele, NAD noted.
[2016-09-19 16:37] VITALS: BP 129/90
[2016-09-19] MEDS ORDERED: DICYCLOMINE HCL 20 MG TABLET PO PRN (17:00)
[2016-09-19] MEDS ORDERED: diphenhydrAMINE 50 MG CAPSULE PO PRN (17:00)
[2016-09-19] MEDS ORDERED: ZOLPIDEM 5 MG TABLET PO PRN (17:00)
[2016-09-19] MEDS ORDERED: PROMETHAZINE HCL 25 MG TABLET PO PRN (17:00)
[2016-09-19] MEDS ORDERED: ACETAMINOPHEN ES 500 MG TABLET PO PRN (17:00)
[2016-09-19] MEDS ORDERED: HYDROCODONE/APAP 5-325MG TABLET PO PRN (17:00)
[2016-09-19] MEDS ORDERED: Z GUARD REMEDY PASTE 57 GM TUBE TOP PRN (17:00)
[2016-09-19] MEDS ORDERED: MAGNESIUM HYDROXIDE 30 ML LIQUID UDC PO PRN (17:00)
[2016-09-19] MEDS ORDERED: ONDANSETRON 4 MG/2 ML VIAL IV PRN (17:00)
--- NOTE | 2016-09-19 17:00 | NUR ---
Received this admission from ER per muna, 46 yo female with the chief complaint of numbness of Left side of extremity, with diagnosis of CVA s/p code stroke. Transferred to bed comfortably. Routine admission care rendered. Awake, alert,oriented x 4, able to move all extremities on purpose, pupils equal and reactive to light, no facial asymmetry, bilateral equal sales team manager, denies numbness or tingling of any extremities but feels weak on left side. Saline lock RFA, intact. Place on tele, SB 54. seen patient with admission orders
--- NOTE | 2016-09-19 17:15 | NUR ---
Discharge Plan: Spoke to the patient and she will arrange for her daughter to pick her up via private car once medically cleared. She refused treatment for Drug Rehab from [facility] and she insists on going back home [[address] [place] [id number]].
[2016-09-19] MEDS: DILTIAZEM HCL 30 MG TABLET PO SCH (17:53)
[2016-09-19] MEDS: BACLOFEN 20 MG TABLET PO SCH (17:53)
[2016-09-19] MEDS: GABAPENTIN 300 MG CAPSULE PO SCH (17:53)
[2016-09-19] MEDS ORDERED: RIVAROXABAN 10 MG TABLET PO SCH (18:00)
--- NOTE | 2016-09-19 18:56 | NUR ---
For MRI brain but patient verbalized she will not be able to tolerate laying on he back for any extended period of time. SO MRI informed, will call Dr. Walker
[2016-09-19 20:00] VITALS: BP 120/68
--- NOTE | 2016-09-19 20:00 | NUR ---
RECEIVED PATIENT ALERT, ORIENTED,NO ACUTE FOCAL DEFICITS,SPEECH AND GAIT WITH IN NORMAL, PATIENT STATED UNABLE TO TOLERATED MRI PROCEDURE,SOHEILA MARTINES NP WAS NOTIFIED, CONTINUE CLOSELY MONITOR.
[2016-09-19] MEDS ORDERED: TRAZODONE 50 MG TABLET PO SCH (21:00)
[2016-09-19] MEDS ORDERED: QUETIAPINE FUMARATE 25 MG TABLET PO SCH (21:00)
[2016-09-19] MEDS ORDERED: SIMVASTATIN 40 MG TABLET PO SCH (21:00)
[2016-09-19] MEDS: ACETAMINOPHEN 325 MG TABLET PO PRN (21:53)
[2016-09-20] VITALS: BP 108/67
[2016-09-20 04:00] VITALS: BP 127/74
--- NOTE | 2016-09-20 06:00 | NUR ---
PATIENT REFUSED LAB BLOOD DRAWN THIS AM,WANTS TO GO HOME, NO ACUTE BLOOD BANK TECHNICIAN NIGHT, SR, SB ON TELE MONITOR.BP STABLE.
[2016-09-20] MEDS ORDERED: PANTOPRAZOLE SODIUM 40 MG TABLET.DR PO SCH (07:00)
[2016-09-20] MEDS: DILTIAZEM HCL 30 MG TABLET PO SCH (08:14)
[2016-09-20] MEDS: GABAPENTIN 300 MG CAPSULE PO SCH (08:15)
[2016-09-20] MEDS: ACETAMINOPHEN 325 MG TABLET PO PRN (08:16)
[2016-09-20] MEDS: BACLOFEN 20 MG TABLET PO SCH (08:16)
[2016-09-20] MEDS ORDERED: LIDOCAINE 5% PATCH TD SCH (09:00)
[2016-09-20 12:00] VITALS: BP 103/54
--- NOTE | 2016-09-20 13:30 | NUR ---
Patient been discharge home in safe and stable condition. No s/s distress was noted. C/O of low back, lidocaine patch was place on her back, and Tylenol was administered. Neuro assessment was done, no s/s of stroke. All procedures ordered by doctor were refused. Doctor notified. Discharge instructions were explained, a copy was given patient. all belongings were taken and prescriptions from pharmacy. Iv removed, put pressure for 5 min due to bleeding. Covered with pressure dressing. Safety and comfort provided during the day. Patient was picked up by daughter in car, student nurse took patient to lobby. Patient left and safe and state conditions.
== END 2016-09-20 13:15 | disposition home or self-care (01) | DRG 69 ==
LOC: ER 14:39 → TELE 16:23
DX: G45.9 Transient cerebral ischemic attack, unspecified (principal); F13.239 Sedative, hypnotic or anxiolytic dependence with withdrawal, unspecified; F11.23 Opioid dependence with withdrawal; D68.69 Other thrombophilia; I48.0 Paroxysmal atrial fibrillation; Z98.84 Bariatric surgery status; Z88.6 Allergy status to analgesic agent; Z88.1 Allergy status to other antibiotic agents; Z79.01 Long term (current) use of anticoagulants; M54.9 Dorsalgia, unspecified; E07.81 Sick-euthyroid syndrome; E66.9 Obesity, unspecified; K21.9 Gastro-esophageal reflux disease without esophagitis; F41.9 Anxiety disorder, unspecified; G89.29 Other chronic pain; K59.03 Drug induced constipation; T40.2X5A Adverse effect of other opioids, initial encounter; Y92.009 Unspecified place in unspecified non-institutional (private) residence as the place of occurrence of the external cause; Z79.899 Other long term (current) drug therapy; F17.200 Nicotine dependence, unspecified, uncomplicated
CPT/HCPCS: 36415; 71010; 85651; 93005; A4663; Q0163